=== PATIENT | male | born 1995 | race Caucasian/White ===

== ENCOUNTER 2020-03-15 19:28 | Emergency (ER) | payer SELFPAY ==
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
[2020-03-15 21:17] VITALS: BP 118/74; TEMP 99.4; O2SAT 99
== END 2020-03-15 21:07 | disposition home or self-care (01) ==
LOC: ER 19:28
DX: H53.8 Other visual disturbances (principal); V49.49XA Driver injured in collision with other motor vehicles in traffic accident, initial encounter
CPT/HCPCS: 70450; 72125; 99284